=== PATIENT | male | born 1955 | race Caucasian/White ===

== ENCOUNTER → 2023-04-17 | Outpatient (CLI) | payer OTHER ==
--- NOTE | 2023-04-17 14:25 | DIREP ---
PROCEDURE:CHEST 2 VIEWS COMPARISON:None. INDICATIONS:ENCOUNTER FOR GENERAL ADULT MEDICAL EXAM WITHOUT ABNORMAL FINDINGS FINDINGS: LUNGS/PLEURA:No focal consolidation, pleural effusion, or pneumothorax. 6 mm ovoid density within the left mid lung field, could indicate calcified granuloma. VASCULATURE:Normal. Unremarkable pulmonary vasculature. CARDIAC:Normal. No cardiac silhouette abnormality or cardiomegaly. MEDIASTINUM:Normal. No visible mass or adenopathy. BONES:Degenerative change without evidence of acute osseus abnormality. OTHER:Negative. CONCLUSION: 1. No acute cardiopulmonary process. 2. Subcentimeter ovoid density within the left mid lung field. While this likely indicates calcified granuloma, cross-sectional imaging could be obtained if clinically warranted. Dictated by: Bandar Singh MD on 04/17/2023 at 02:22 PM
== END | disposition home or self-care (01) ==
LOC: RAD 09:44
PROVIDERS: ATTEND Nurse Practitioner
DX: M47.814 Spondylosis without myelopathy or radiculopathy, thoracic region (principal); Z00.00 Encounter for general adult medical examination without abnormal findings
CPT/HCPCS: 71046

== ENCOUNTER → 2023-12-08 | Outpatient (CLI) | payer OTHER | END | disposition home or self-care (01) | LOC: RAD 08:51 | PROVIDERS: ATTEND Nurse Practitioner | DX: Z00.00 Encounter for general adult medical examination without abnormal findings (principal); I70.0 Atherosclerosis of aorta; M47.814 Spondylosis without myelopathy or radiculopathy, thoracic region | CPT/HCPCS: 71046 ==